=== PATIENT | female | born 1965 | race Caucasian/White ===

== ENCOUNTER 2017-11-05 13:55 | Emergency (ER) | payer BC, OTHER ==
[2017-11-05 14:16] VITALS: BP 135/76
--- NOTE | 2017-11-05 15:03 | ED ---
Abdominal Pain/Female - HPI Summary HPI Summary: 52 yr old with three days of right upper abdominal pain, constant, sharp, 6/10 and radiating to her back. Made worse with eating. Associated with nausea, some vomiting and gabe colored stools. Denies fever. She still has her gallbladder. - History of Current Complaint Chief Complaint: UCAbdominalPain Stated Complaint: BACK/RIGHT SIDE PAIN Time Seen by Provider: 11/05/17 14:39 Hx Last Menstrual Period: IRREGULAR Allergies/Adverse Reactions: Allergies Allergy/AdvReac Type Severity Reaction Status Date / Time Penicillins Allergy Severe Rash Verified 11/05/17 14:03 PMH/Surg Hx/FS Hx/Imm Hx History: Reports: Hx Kidney Stones - PASSED Sensory History: Reports: Hx Contacts or Glasses - READING GLASSES Denies: Hx Hearing Aid Opthamlomology History: Reports: Hx Contacts or Glasses - READING GLASSES - Surgical History Surgery Procedure, Year, and Place: EXCISION OF CYST FROM LEFT WRIST AND LEFT FOOT A CHILD. 1991 & 1992 CSECTION X 2, [facility]. 2011 FATTY TUMOR REMOVED FROM LOW BACK, [facility]. RIGHT ROTATOR CUFF Hx Anesthesia Reactions: No Infectious Disease History: No Infectious Disease History: Denies: History Other Infectious Disease, Traveled Outside the [place] in Last 30 Days - Family History Known Family History: Positive: Hypertension - Social History Alcohol Use: Occasionally Substance Use Type: Reports: None Smoking Status (MU): Former Smoker Type: Cigarettes Amount Used/How Often: SOCIAL WHEN SHE DRINKS ALCOHOL, APPROX 10/WK Have You Smoked in the Last Year: Yes Review of Systems Constitutional: Negative Positive: Abdominal Pain, Vomiting, Diarrhea, Nausea All Other Systems Reviewed And Are Negative: Yes Physical Exam Triage Information Reviewed: Yes Vital Signs On Initial Exam: Initial Vitals Temp Pulse Resp BP Pulse Ox 98 F 68 18 135/76 99 11/05/17 14:08 11/05/17 14:08 11/05/17 14:08 11/05/17 14:08 11/05/17 14:08 Vital Signs Reviewed: Yes Appearance: Positive: Pain Distress Skin: Positive: Warm, Skin Color Reflects Adequate Perfusion Head/Face: Positive: Normal Head/Face Inspection Eyes: Positive: EOMI, FELIPA Neck: Positive: Nontender Respiratory/Lung Sounds: Positive: Clear to Auscultation, Breath Sounds Present Cardiovascular: Positive: RRR. Negative: Murmur Abdomen Description: Positive: Nontender, Distended. Negative: CVA Tenderness ( R), CVA Tenderness (L) Musculoskeletal: Positive: Strength/ROM Intact Neurological: Positive: Sensory/Motor Intact, Alert, Oriented to Person Place, Time, CN Intact II-III Psychiatric: Positive: Normal - Jazmine Coma Scale Best Eye Response: 4 - Spontaneous Best Motor Response: 6 - Obeys Commands Best Verbal Response: 5 - Oriented Diagnostics - Vital Signs Vital Signs Temp Pulse Resp BP Pulse Ox 11/05/17 14:08 98 F 68 18 135/76 99 - Laboratory Lab Results: Lab Results 11/05/17 Range/Units 14:21 POC Urine Color Dark yellow POC Urine Clarity Slightly cloudy POC Urine pH 6.5 (5-9) POC Ur Specif [place] 1.020 (1.010-1.030) POC Urine Protein Negative (Negative) POC Ur Glucose (UA) Negative (Negative) POC Urine Ketones Negative (Negative) POC Urine Blood Negative (Negative) POC Urine Nitrite Negative (Negative) POC Urine Bilirubin Negative (Negative) POC Urine Urobilinogen 4.0 H (Negative) POC U Leukocyte Esteras Negative (Negative) Lab Statement: Any lab studies that have been ordered have been reviewed, and results considered in the medical decision making process. Abdominal Pain Fem Course/Dx - Course Course Of Treatment: 52 yr old discussed with ER VERIFY REP Shaheed at [facility], and they are aware of patient coming. Patient refused going by ambulance to the ER and signed out AMA. - Diagnoses Provider Diagnoses: Abdominal pain Discharge - Discharge Plan Condition: Good Disposition: AGAINST MEDICAL ADVICE Referrals: SHALONDA Spaulding [Primary Care Provider] -
== END 2017-11-05 15:02 | disposition left against medical advice (07) ==
LOC: UCCORT 13:55
DX: R10.11 Right upper quadrant pain (principal); R11.2 Nausea with vomiting, unspecified; Z87.442 Personal history of urinary calculi; Z88.0 Allergy status to penicillin; Z87.891 Personal history of nicotine dependence
CPT/HCPCS: 81003; 99212; G0463

== ENCOUNTER 2018-01-07 09:04 | Day surgery (SDC) | payer BC, OTHER ==
--- NOTE | 2017-12-29 04:19 | HP ---
PREOPERATIVE HISTORY AND PHYSICAL: DATE OF ADMISSION/SURGERY: 01/07/18 DATE OF OFFICE VISIT: 12/25/17 ATTENDING SURGEON: Dr. Alejandra Turner.* (DICTATED BY NANCY ZUÑIGA) PROCEDURE: Right shoulder arthroscopic decompression, debridement, and manipulation. CHIEF COMPLAINT: Right shoulder pain. HISTORY OF PRESENT ILLNESS: Brandee is a 52-year-old female, who presents to the clinic status post rotator cuff repair on 11/20/16. She experienced stiffness and adhesive capsulitis postoperatively. She has failed conservative measures and, therefore, agreed to undergo a right shoulder arthroscopic decompression, debridement, and manipulation with Dr. Turner on 01/07/18. PAST MEDICAL HISTORY: Portal vein stenosis and primary biliary cholangitis. PAST SURGICAL HISTORY: x2, ganglion cyst removal of her left wrist and foot, fatty tumor removal of her low back, and right shoulder rotator cuff repair. Denies prior complications with anesthesia. MEDICATIONS: 1. Valium 5 mg take 1 to 2 tabs 30 minutes prior to the MRI. 2. Ibuprofen 600 mg 3 times a day as needed for pain. 3. Flexeril 10 mg 1 every 8 hours as needed for muscle spasm. 4. Lorazepam 1 mg one-half to 1 tablet twice a day as needed. 5. Multivitamin 1 daily. 6. Vitamin 1 by mouth daily. 7. Lower Bowel supplement 4 by mouth at night. 8. Vitamin B12 one by mouth daily. 9. Wobenzym 3 by mouth in the morning. 10. Vitamin B complex 1 by mouth daily. 11. Flaxseed oil 1 by mouth daily. 12. Lecithin 1200 mg daily. 13. Garlic 1000 mg daily. 14. Adrenal 80 mg daily. ALLERGIES: PENICILLIN. FAMILY HISTORY: Positive for bladder cancer, diabetes, hypertension, and heart disease. Denies family history of DVT or PE. SOCIAL HISTORY: She lives with her . She is a teacher. She is a former smoker. She reports occasional alcohol consumption. REVIEW OF SYSTEMS: A 14-point review of systems was reviewed with the patient. Positive for current complaint, otherwise negative. Denies fever, chills, chest pain, shortness of breath, history of history of DVT or PE, history of bleeding disorders, history of hep C or HIV. PHYSICAL EXAMINATION GENERAL: A 52-year-old, well-developed, well-nourished female, in no acute distress. Alert and oriented x3. Appropriate mood and affect. VITAL SIGNS: Height 62, weight 170, blood pressure 128/72, respiratory rate 18 , temperature 98.7, BMI of 31.1. HEENT: Normocephalic, atraumatic. PERRLA. Throat clear. NECK: Supple. PULMONARY: Lungs are clear to auscultation bilaterally. No wheezing, rhonchi, or rales. CARDIO: Regular rate and rhythm. S1 and S2. No murmurs, gallops, or rubs. No edema. ABDOMEN: Positive bowel sounds, soft, nontender. MUSCULOSKELETAL: Right upper extremity, skin is intact. Well-healed surgical incision. No warmth or erythema. Tenderness over the AC joint anteriorly. Forward flexion to 90, passive to 110; abduction to 80, passive to 90. External rotation to 10, passively unable to go past; internal rotation to posterior iliac spine. +2 radial pulse. Sensation intact to light touch distally. NEUROLOGIC: Alert and oriented x 3. Cranial nerves are grossly intact. Sensation is intact to light touch. DIAGNOSTIC STUDIES: MR arthrogram revealed a small full-thickness rotator cuff tear, otherwise the rotator cuff was intact. IMPRESSION: Right shoulder adhesive capsulitis. PLAN: The patient is scheduled to undergo a right shoulder arthroscopic decompression, debridement, and manipulation with Dr. Turner on 01/07/18. She will return to the office in 10 to 14 days postop for followup and suture removal. Percocet was sent to the patient's pharmacy for postop pain management. The patient will start therapy shortly after surgery to work on range of motion. NANCY ZUÑIGA [id number]/[facility] #: [id number] MARINO
[~2018-01-07 09:04] MED LIST: Buffered Lidocaine 0.9% SYRIN* 5 ML/SYR SYRINGE INTRADERM ONE; Dexamethasone IV* 4 MG/ML 1 ML (4 MG) IV SLOW PU ONE; Famotidine IV* 10 MG/ML 2 ML (20 mg) IV ONE
[2018-01-07] MEDS ORDERED: Buffered Lidocaine 0.9% SYRIN* 5 ML/SYR SYRINGE ONE (09:17)
[2018-01-07] MEDS ORDERED: Dexamethasone IV* 4 MG/ML 1 ML (4 MG) ONE (09:17)
[2018-01-07] MEDS ORDERED: Clindamycin 900 MG IVPREMIX(* 900 MG/50 ML SDV IV ONE (09:17)
[2018-01-07] MEDS ORDERED: Famotidine IV* 10 MG/ML 2 ML (20 mg) ONE (09:17)
[2018-01-07] MEDS ORDERED: Mivacurium Chloride* 20 MG/10 ML VIAL IV ONE (10:05)
[2018-01-07] MEDS ORDERED: fentaNYL* 50 MCG/ML 2 ML VIAL (100 MCG VIAL) ONE (10:05)
[2018-01-07] MEDS ORDERED: Propofol* 10 MG/ML 20 ML BTL IV PUSH ONE (10:05)
[2018-01-07] MEDS ORDERED: Midazolam* 1 MG/ML 2 ML VIAL (2 MG) ONE (10:05)
[2018-01-07] MEDS ORDERED: Lidocaine 2% PF * 5 ML VIAL ONE (10:05)
[2018-01-07] MEDS ORDERED: ROPIVACAINE 5 MG/ML 30 ML BTL (0.5%) ONE (10:11)
[2018-01-07] MEDS ORDERED: DiMENhydriNATE IV* 50 MG/ML VIAL IV PUSH PRN (10:39)
[2018-01-07] MEDS ORDERED: Ketorolac INJ* 30 MG/ML 1 ML VIAL IV PRN (10:39)
[2018-01-07] MEDS ORDERED: PROCHLORPERAZINE INJ 5 MG/ML 2 ML VIAL IV PRN (10:39)
[2018-01-07] MEDS ORDERED: Naloxone* 0.4 MG/ML 1 ML VIAL IV PRN (10:39)
[2018-01-07] MEDS ORDERED: HYDROcodone/ACETAMIN 5-325 MG* 1 TAB PO PRN (10:39)
[2018-01-07] MEDS ORDERED: fentaNYL* 50 MCG/ML 2 ML VIAL (100 MCG VIAL) IV PRN (10:39)
[2018-01-07] MEDS ORDERED: oxyCODONE/Acetamin 5/325 MG* TAB PO PRN (10:39)
[2018-01-07] MEDS ORDERED: Bupivacaine 0.25% SDV* 30 ML ONE (10:52)
[2018-01-07] MEDS ORDERED: EPHEDrine (Pressors)* 50 MG/ML VIAL ONE (12:01)
[2018-01-07] MEDS ORDERED: methylPREDNISolone ACETATE 80* 80 MG/ML 1 ML VIAL ONE (12:04)
[2018-01-07 13:59] VITALS: BP 147/97
--- NOTE | 2018-01-17 18:44 | OP ---
CC: PCP OPERATIVE REPORT: DATE OF OPERATION: 01/07/18 DATE OF : 67 ATTENDING SURGEON: Alejandra Turner MD MANAGER SECURITY AND SAFETY: NANCY oLrd An imaging assistant was needed for the entirety of the case to help with positioning, retraction and was utilized throughout all portions of the case. ANESTHESIA: General with interscalene block. PRE-OP DIAGNOSIS: Right shoulder adhesive capsulitis status post previous rotator cuff repair. POST-OP DIAGNOSIS: Right shoulder adhesive capsulitis status post previous rotator cuff repair. OPERATIVE PROCEDURE: 1. Right shoulder arthroscopy with lysis of adhesions and manipulation under anesthesia. 2. Revision subacromial decompression and lysis of adhesions. IMPLANTS: None. COMPLICATIONS: None. ESTIMATED BLOOD LOSS: Minimal. INDICATIONS: Brandee Pacheco is a 52-year-old female, who underwent a work-related injury on 08/07/16. She was diagnosed with a rotator cuff tear. After significant delay, she underwent a repair on 11/20/16, which was a repair of the supra and infraspinatus tendon as well as an open repair of subscapularis and biceps tenodesis. It was a significant amount of surgery. She was doing well in the postoperative recovery time, but she noticed significant amount of stiffness particularly with external rotation and forward flexion. She was tried in conservative management including physical therapy, antiinflammatories , injections and she continued to have persistent issue. MR arthrogram was done that demonstrated a possible area where that could have been a partial thickness versus full thickness tear, although this did not correlate well with her symptoms. She has been having limited passive as well as active range of motion. Risks and benefits of surgery were discussed at length, which included but not limited to bleeding; infection; damage to nerves, vessels, surrounding structures; wound nonhealing; persistent pain; need for further surgery; scarring; stiffness; incomplete relief of symptoms; risks of anesthesia as well as risk of fracture, risk of DVT. She elected to proceed. DESCRIPTION OF PROCEDURE: The patient was greeted in the preoperative area by the attending surgeon. Correct extremity was marked, consent was confirmed. When she was greeted in the preoperative area, she was able to forward flex actively to about 90 degrees, passively to about 110 degrees, abduct to about 80 degrees, passively 90 degrees, externally rotate to about 5 degrees, and passively to 5 degrees. She could reach behind her back to her low buttock and sacrum. She underwent interscalene nerve block by the anesthesiologist, after which she was brought back to the operating suite. She was placed in the supine position on the operating room table. She underwent general anesthesia with endotracheal intubation. After she was prepped and draped, range of motion was tested. I was able to passively with gentle manipulation forward flex her to about 140, abduct her to about 100 degrees, externally rotate to about 15 degrees. At that point, she was placed in a left lateral decubitus position. All bony prominences were padded. Right arm was draped unsterile with 10 pounds of traction. The right shoulder was prepped and draped in the usual sterile fashion beginning with chlorhexidine soap, scrub, and alcohol wipe , and a final prep with ChloraPrep. After appropriate surgical pause indicating side, site, procedure, and administration of antibiotics, the posterior lateral portal was made sharply with a 11 blade. Scope was introduced into the joint. There was abundant erythema, hyperemia, synovitis that was evident and significant. There was no evidence of the anterior capsule recess. The anterior interval was significantly scarred. The anterior portal was made in an outside-in fashion. The tissue was very tough to get there in to place the anterior cannula. Once this was placed, images were obtained and the glenohumeral joint was very tight. There was a sheath of scar obscuring the subscapularis all the way, which was connected to anterior labrum. There was definitely a side of motion blocking. The undersurface of the superior labrum was also scarred due to supraspinatus tendon. At this point, electrocautery device was used to release some of the interval scar as well as carefully release some of the scar that had extended from where the subscap should have been to the anterior labrum. Some of this was done bluntly with a blunt probe to prevent any damage to the subscapularis as well as the cartilage. Once some of the anterior interval was developed, the subscapularis was identified and found to be intact with no evidence of failure of the repair. Carefully, the adhesions were released again with care to protect nerves and vessels, just removing the scar adjacent to the anterior labrum. Superior labrum was also gently released from the undersurface of the subscapularis to full mobilization. Once the lysis of adhesions was done intraarticularly, attention was directed to subacromial space. The scope was placed in the subacromial space. There abundant bursa was present. There was significant amount of scar tissue with adherence to the deltoid that was apparent. The lateral portal was made in an outside-in fashion. A shaver was used to relieve the undersurface of the rotator cuff from the deltoid adhesions both bluntly and with electrocautery device. The undersurface of the acromion was also skeletonized and a revision decompression was done. The excess debris was then carefully removed. Again, the cuff was gently probed and there was no evidence of a tear. The wounds were copiously irrigated with sterile saline. The portals were closed with 0 nylon in an interrupted fashion. Sterile dressings were applied. The patient was then placed supine and then a gentle manipulation was done. Forward flexion to about 160 was obtained, abduction to about 145 was obtained, external rotation to 70 degrees. This was all done carefully with slow movement and scapular stabilization. After the manipulation was done, she was placed in a regular splint, she was woken from anesthesia and transferred to the PACU in stable condition. POSTOPERATIVE PLAN: She will be nonweightbearing. She will start physical therapy on day one. She will be discharged on pain medications as well as antibiotics. I will see the patient back in 10 to 14 days. She was instructed on what kind of passive motion to do. We will see her back in about 2 weeks. [id number]/[facility] #: [id number] MARINO
== END 2018-01-07 14:30 | disposition home or self-care (01) ==
LOC: OR 09:04
PROVIDERS: ATTEND Orthopaedic Surgery
DX: M75.01 Adhesive capsulitis of right shoulder (principal); F41.9 Anxiety disorder, unspecified
CPT/HCPCS: J1040; J1100; J2250; J2704; J2795; J3010

== ENCOUNTER 2019-03-14 14:02 | Emergency (ER) | payer BC, OTHER | END 2019-03-14 14:19 | disposition left against medical advice (07) | LOC: UCCORT 14:02 | DX: R05 Cough (principal); J34.89 Other specified disorders of nose and nasal sinuses; Z88.0 Allergy status to penicillin; Z53.21 Procedure and treatment not carried out due to patient leaving prior to being seen by health care provider ==